=== PATIENT | female | born 1965 | race Caucasian/White ===

== ENCOUNTER 2017-11-18 17:32 | Emergency (ER) | payer OTHER ==
[~2017-11-18] VITALS: Ht 162.6 cm; Wt 98.0 kg
[~2017-11-18 17:32] MED LIST: ALLER-EASE180 MG PO; ANTIVERT25 MG PO; ASPIRIN325 PO; BENADRYL25 MG PO; CIPROFLOXACIN500 M1 PO; DIPHENHIST50 MG PO; FLEXERIL PO; IBUPROFEN 400400 M2 PO; IBUPROFEN 800800 M1 PO; LEVAQUIN 500 M500 M2 PO; LEVAQUIN 500 M500 MG PO; LEVOTHROID150 MCG; LEVOTHYROXINE 0.15MG PO; LIDOCAINE VISC100 M1 MUCOUS MEM; MUCINEX TA600 MG/TA2 PO; NAPROSYN500 MG PO; NEURONTIN600 MG PO; OMEPRAZOLE 20 M20 MG PO; PERCOCET 5-3251 EACH PO; PHENERGAN 25 MG25 M1 PO; PROAIR HFA8.5 GM INH; PROMETHAZINE12.5 M1 PO; RESTASIS1 EACH OPHTHALMIC; ROBAXIN500 MG PO; SYNTHROID150 MCG PO; TESSALON200 MG PO; TOPAMAX 25 MG T25 M1 PO; TYLENOL325 MG PO; ZOFRAN 4 MG ORAL4 M1 DIS; ZPAK PO
[2017-11-18] MEDS ORDERED: ZOLOFT50 MG PO (17:47)
[2017-11-18] MEDS ORDERED: TUMS PO (17:47)
[2017-11-18] MEDS ORDERED: CENTRUM SILVER1 EAC2 PO (17:47)
[2017-11-18 18:28] LABS: URINE BILIRUBIN NEGATIVE (Negative); URINE BLOOD NEGATIVE (Negative); URINE CLARITY CLEAR; URINE COLOR YELLOW; URINE GLUCOSE-RANDOM NEGATIVE (Negative); URINE KETONES NEGATIVE (Negative); URINE LEUKOCYTES NEGATIVE (Negative); URINE NITRITE NEGATIVE (Negative); URINE PROTEIN NEGATIVE (Negative); URINE SPECIFIC GRAVITY 1.025 (1.005-1.030); URINE UROBILINOGEN 0.2 E.U./dl (0.2-1.0)
[2017-11-18 18:52] LABS: ABSOLUTE BASOPHILS 0.1 thou/uL (0.0-0.2); ABSOLUTE EOSINOPHILS 0.1 thou/uL (0.0-0.7); ABSOLUTE LYMPHOCYTES 2.3 thou/uL (0.8-5.3); ABSOLUTE MONOCYTES 0.3 thou/uL (0.0-1.2); ABSOLUTE NEUTROPHILS 3.2 thou/uL (1.6-8.1); BASOPHILS 1.3 %; EOSINOPHILS 1.5 %; HEMOGLOBIN 14.8 gm/dL (12.0-15.0); LYMPHOCYTES 38.6 %; MCH 31.7 pg (26.0-34.0); MCHC 33.6 g/dL (28.0-37.0); MCV 94.6 fL (80.0-100.0); MONOCYTES 5.2 %; MPV 8.3 fl. (7.2-11.1); NUCLEATED RBCS 0 /100WBC; PLATELET COUNT* 230 thou/uL (150-400); POLYS 53.4 %; RBC 4.65 mil/uL (4.20-5.00); RDW-CV 13.7 % (10.5-14.5); WBC 5.9 thou/uL (4.0-11.0)
[2017-11-18 18:57] LABS: CALCIUM 9.9 mg/dL (8.5-10.1); CREATININE 0.9 mg/dL (0.6-1.3); POTASSIUM 3.6 mmol/L (3.5-5.1)
[2017-11-18 19:01] LABS: TOTAL BILIRUBIN 0.3 mg/dL (<0.1-1.0); TOTAL PROTEIN 7.9 g/dL (6.4-8.2)
[2017-11-18] MEDS ORDERED: BENTYL 20 MG TA20 M1 PO (20:39)
[2017-11-18] MEDS ORDERED: FLAGYL500 MG PO (20:40)
[2017-11-18] MEDS ORDERED: PHENERGAN 25 MG25 M1 PO (20:40)
[2017-11-18 20:57] VITALS: BP 119/75
== END 2017-11-18 20:58 | disposition home or self-care (01) ==
LOC: M.ERS 17:32
PROVIDERS: Nurse Practitioner Family
DX: R19.7 Diarrhea, unspecified (principal); R10.32 Left lower quadrant pain; R11.2 Nausea with vomiting, unspecified; E89.0 Postprocedural hypothyroidism; M32.9 Systemic lupus erythematosus, unspecified; F17.210 Nicotine dependence, cigarettes, uncomplicated; Z88.5 Allergy status to narcotic agent; Z88.1 Allergy status to other antibiotic agents; Z88.2 Allergy status to sulfonamides; Z88.6 Allergy status to analgesic agent; Z88.8 Allergy status to other drugs, medicaments and biological substances

== ENCOUNTER 2017-11-23 13:21 | Emergency (ER) | payer OTHER ==
[~2017-11-23] VITALS: Ht 162.6 cm; Wt 95.3 kg
[~2017-11-23 13:21] MED LIST changes: +BENTYL 20 MG TA20 M1 PO; +CENTRUM SILVER1 EAC2 PO; +FLAGYL500 MG PO; +TUMS PO; +ZOLOFT50 MG PO
[2017-11-23 15:01] LABS: ABSOLUTE EOSINOPHILS 0.1 thou/uL (0.0-0.7); ABSOLUTE LYMPHOCYTES 1.6 thou/uL (0.8-5.3); ABSOLUTE MONOCYTES 0.3 thou/uL (0.0-1.2); ABSOLUTE NEUTROPHILS 5.8 thou/uL (1.6-8.1); BASOPHILS 0.3 %; EOSINOPHILS 0.8 %; HEMATOCRIT 45.5 % (37.0-47.0); LYMPHOCYTES 20.8 %; MCH 31.7 pg (26.0-34.0); MCV 96.2 fL (80.0-100.0); MPV 8.3 fl. (7.2-11.1); NUCLEATED RBCS 1 /100WBC; PLATELET COUNT* 250 thou/uL (150-400); POLYS 74.1 %; RBC 4.73 mil/uL (4.20-5.00); WBC 7.8 thou/uL (4.0-11.0)
[2017-11-23 15:11] LABS: ANION GAP 8 mmol/L (7-16); BUN 12 mg/dL (7-18); CHLORIDE 105 mmol/L (98-107); CO2 26 mmol/L (21-32); CREATININE 0.9 mg/dL (0.6-1.3); GLUCOSE 83 mg/dL (70-99); POTASSIUM 3.7 mmol/L (3.5-5.1); SODIUM 139 mmol/L (136-145)
[2017-11-23 15:18] LABS: ALBUMIN 3.9 g/dL (3.4-5.0); ALKALINE PHOSPHATASE 103 U/L (46-116); SGOT 16 U/L (15-37); SGPT 20 U/L (30-65); TOTAL BILIRUBIN 0.2 mg/dL (<0.1-1.0); TOTAL PROTEIN 7.9 g/dL (6.4-8.2); TROPONIN-I LEVEL <0.06 ng/mL (<0.06)
[2017-11-23 15:32] LABS: APTT 25.7 Seconds (25.0-31.3)
[2017-11-23 18:00] VITALS: BP 122/83
--- NOTE | 2017-11-24 11:08 | EKG ---
[place] [address] ELECTROCARDIOGRAM REPORT Name: MAMADOU MAN Room: [facility]#: [id number] Admission: 11/23/17 Attend Phys: Discharge: 11/23/17 Date of : 69 Report #: [id number] THIS REPORT FOR: //name// [facility] ED Test Date: 2017-11-23 Test Time: 13:31:57 Pat Name: MAMADOU MAN Department: Room: Gender: F Steam [employer] Fe[employer]: JONO : 1965 Requested By: Dianne Hurt Order Number: [id number] MD: Andreas Parikh Measurements Intervals [place] Rate: 65 P: 24 AR: 163 QRS: 49 QRSD: 120 T: 10 QT: 391 QTc: 407 Interpretive Statements Sinus rhythm Nonspecific intraventricular conduction delay Borderline T abnormalities, anterior leads Compared to ECG 02/09/2016 18:00:13 No significant changes Electronically Signed On 11-24-2017 11:08:08 CDT by Andreas Parikh [email or web address] <ELECTRONICALLY SIGNED> By: Andreas Parikh MD, [facility] 11/24/17 1108 133 30 Andreas Parikh MD, FAC /EPI
== END 2017-11-23 18:01 | disposition home or self-care (01) ==
LOC: M.ERS 13:21
PROVIDERS: Personal Emergency Response Attendant
DX: I80.9 Phlebitis and thrombophlebitis of unspecified site (principal); Z98.890 Other specified postprocedural states; Z90.49 Acquired absence of other specified parts of digestive tract; Z90.721 Acquired absence of ovaries, unilateral; Z88.5 Allergy status to narcotic agent; Z88.1 Allergy status to other antibiotic agents; Z88.2 Allergy status to sulfonamides; F17.210 Nicotine dependence, cigarettes, uncomplicated

== ENCOUNTER 2019-04-21 21:14 | Emergency (ER) | payer OTHER ==
[~2019-04-21] VITALS: Ht 162.6 cm; Wt 100.2 kg
[2019-04-21] MEDS ORDERED: XARELTO20 MG PO (21:33)
[2019-04-21] MEDS ORDERED: CRESTOR20 MG PO (21:34)
[2019-04-21] MEDS ORDERED: ZYRTEC10 M5 PO (21:34)
[2019-04-21] MEDS ORDERED: PROAIR HFA8.5 GM INH (21:34)
[2019-04-21] MEDS ORDERED: DULERA 100 MCG/13 GM (21:35)
[2019-04-21 21:51] LABS: ABSOLUTE EOSINOPHILS 0.1 thou/uL (0.0-0.7); ABSOLUTE LYMPHOCYTES 3.2 thou/uL (0.8-5.3); ABSOLUTE MONOCYTES 0.4 thou/uL (0.0-1.2); ABSOLUTE NEUTROPHILS 5.3 thou/uL (1.6-8.1); BASOPHILS 0.2 %; EOSINOPHILS 1.3 %; HEMATOCRIT 39.7 % (37.0-47.0); HEMOGLOBIN 13.5 gm/dL (12.0-15.0); LYMPHOCYTES 35.3 %; MCH 31.9 pg (26.0-34.0); MCHC 34.1 g/dL (28.0-37.0); MCV 93.7 fL (80.0-100.0); MONOCYTES 4.9 %; MPV 7.5 fl. (7.2-11.1); NUCLEATED RBCS 0 /100WBC; PLATELET COUNT* 245 thou/uL (150-400); POLYS 58.3 %; RBC 4.23 mil/uL (4.20-5.00); RDW-CV 13.4 % (10.5-14.5)
[2019-04-21 22:03] LABS: CREATININE 0.9 mg/dL (0.6-1.3); POTASSIUM 3.8 mmol/L (3.5-5.1)
[2019-04-21 22:07] LABS: ALBUMIN 3.5 g/dL (3.4-5.0); TOTAL BILIRUBIN 0.3 mg/dL (<0.1-1.0); TOTAL PROTEIN 7.3 g/dL (6.4-8.2)
[2019-04-21] MEDS ORDERED: ZANAFLEX4 MG PO (22:23)
[2019-04-21] MEDS ORDERED: PHENERGAN 25 MG25 M1 PO (22:23)
[2019-04-22 01:33] VITALS: BP 0/0
== END 2019-04-22 01:35 | disposition home or self-care (01) ==
LOC: M.ERS 21:14
PROVIDERS: Nurse Practitioner Family
DX: M17.11 Unilateral primary osteoarthritis, right knee (principal); M62.838 Other muscle spasm; R22.0 Localized swelling, mass and lump, head; Z88.5 Allergy status to narcotic agent; Z88.2 Allergy status to sulfonamides; Z88.1 Allergy status to other antibiotic agents; Z88.8 Allergy status to other drugs, medicaments and biological substances; Z86.711 Personal history of pulmonary embolism; Z86.718 Personal history of other venous thrombosis and embolism; Z98.890 Other specified postprocedural states